=== PATIENT | male | born 1955 | race Caucasian/White ===

== ENCOUNTER 2018-03-18 18:55 | Inpatient (IN) | payer SELFPAY ==
[~2018-03-18] VITALS: Ht 180.3 cm; Wt 69.0 kg
[2018-03-18 19:56] LABS: Basophils # (auto) 0 uL; Basophils % (auto) 0.3 % (0.0-2.0); Eosinophils # (auto) 0 uL; Hematocrit 49.8 % (41.0-53.0); Hemoglobin 17.2 g/dL (13.5-17.5); Lymphocytes # (auto) 0.7 uL; Lymphocytes % (auto) 5.5 % (10.0-50.0); Mean Corpuscular Hemoglobin 33.8 pg (28.0-32.0); Mean Corpuscular Hgb Conc. 34.4 g/dL (32.0-36.0); Mean Corpuscular Volume 98.2 fL (80.0-100.0); Monocytes % (auto) 7.7 % (0.0-12.0); Neutrophils % (auto) 86.5 % (37.0-80.0); Platelet Count (auto) 237 10^3/uL (140-450); Red Blood Cells 5.08 10^6/uL (4.5-5.90); White Blood Cell 12.8 10^3/uL (4.4-10.8)
[2018-03-18 20:18] LABS: BUN/Creatinine Ratio 12.4; Calcium 8.9 mg/dL (8.5-10.1)
[2018-03-18 20:20] LABS: Bilirubin, Total 0.9 mg/dL (0.2-1.0); Total Protein 7.9 g/dL (6.4-8.2)
[2018-03-18 22:39] LABS: Urine Bacteria NONE SEEN /hpf (None Seen); Urine Blood 2+ /uL (Negative); Urine Mucus FEW (None Seen); Urine WBC 8 /hpf (0 - 3)
[2018-03-19 00:44] LABS: Prothrombin Time 10.9 sec (9.37-12.3)
[2018-03-19] MEDS ORDERED: PROMETHAZINE HCL 25 MG/ML 1ML IV ONE (00:45)
[2018-03-19] MEDS ORDERED: ACETAMINOPHEN 500 MG TAB PO PRN (02:00)
[2018-03-19] MEDS ORDERED: ONDANSETRON HCL 4 MG/2 ML VIAL IV PRN (02:00)
[2018-03-19 04:15] VITALS: BP 130/77
[2018-03-19] MEDS: HYDROcodone-ACET 5/325MG TAB PO PRN (07:51)
[2018-03-19 08:01] VITALS: BP 109/73
[2018-03-19 08:28] LABS: Basophils # (auto) 0 uL; Basophils % (auto) 0.5 % (0.0-2.0); Eosinophils # (auto) 0 uL; Eosinophils % (auto) 0.3 % (0.0-7.0); Hematocrit 44.6 % (41.0-53.0); Hemoglobin 15.2 g/dL (13.5-17.5); Lymphocytes % (auto) 13.2 % (10.0-50.0); Mean Corpuscular Hemoglobin 33.4 pg (28.0-32.0); Mean Corpuscular Hgb Conc. 34.1 g/dL (32.0-36.0); Mean Corpuscular Volume 98.1 fL (80.0-100.0); Monocytes # (auto) 0.8 uL; Monocytes % (auto) 10.5 % (0.0-12.0); Neutrophils # (auto) 5.6 uL; Neutrophils % (auto) 75.5 % (37.0-80.0); Platelet Count (auto) 221 10^3/uL (140-450); Red Blood Cells 4.55 10^6/uL (4.5-5.90); White Blood Cell 7.5 10^3/uL (4.4-10.8)
[2018-03-19 08:48] LABS: BUN/Creatinine Ratio 14.3; Calcium 8.5 mg/dL (8.5-10.1); Potassium 3.6 mmol/L (3.5-5.1)
[2018-03-19] MEDS: cefTRIAXone 1GM/10ml IVPUSH 10 ML IV SCH (08:51)
[2018-03-19] MEDS: NICOTINE 14 MG/24HR TOPICAL PATCH TD SCH (08:51)
[2018-03-19] MEDS ORDERED: ALPRAZolam 0.5 MG TAB PO ONE (12:45)
[2018-03-19 13:00] VITALS: BP 109/60
[2018-03-19] MEDS: MORPHINE SULFATE 4 MG/ML SYR/VIAL IV PRN (13:32)
[2018-03-19] MEDS: METOPROLOL TARTRATE 25 MG TAB PO SCH ×2 (13:32→21:38)
[2018-03-19 14:02] LABS: Alcohol, Urine < 3.0 mg/dL (0-5); Amphetamine Screen, Urine NEGATIVE (NEGATIVE); Barbiturate Scree,Urine NEGATIVE (NEGATIVE); Benzodiazephine Screen, Urine NEGATIVE (NEGATIVE); Cannabinoid Screen, Urine POSITIVE (NEGATIVE); Cocaine Screen, Urine NEGATIVE (NEGATIVE); Opiate Scree,Urine NEGATIVE (NEGATIVE); Phencyclidine Screen, Urine NEGATIVE (NEGATIVE)
[2018-03-19 17:34] VITALS: BP 125/79
[2018-03-19] MEDS: ALPRAZolam 0.5 MG TAB PO PRN (21:39)
[2018-03-19 21:51] VITALS: BP 108/68
[2018-03-20 05:52] VITALS: BP 102/69
[2018-03-20] MEDS: MORPHINE SULFATE 4 MG/ML SYR/VIAL IV PRN ×3 (08:31→15:58)
[2018-03-20] MEDS: HYDROcodone-ACET 5/325MG TAB PO PRN ×2 (08:56→15:27)
[2018-03-20 09:04] VITALS: BP 112/68
[2018-03-20] MEDS: cefTRIAXone 1GM/10ml IVPUSH 10 ML IV SCH (09:24)
[2018-03-20] MEDS: NICOTINE 14 MG/24HR TOPICAL PATCH TD SCH (09:25)
[2018-03-20] MEDS: METOPROLOL TARTRATE 25 MG TAB PO SCH ×2 (09:25→22:00)
[2018-03-20] MEDS: ALPRAZolam 0.5 MG TAB PO PRN ×2 (11:43→20:09)
[2018-03-20] MEDS: CARISOPRODOL 350 MG TAB PO PRN ×2 (12:03→19:15)
[2018-03-20 13:31] VITALS: BP 105/70
[2018-03-20 17:27] VITALS: BP 97/62
[2018-03-20 22:01] VITALS: BP 101/59
[2018-03-21 04:49] VITALS: BP 98/66
[2018-03-21] MEDS: CARISOPRODOL 350 MG TAB PO PRN ×2 (07:46→14:59)
[2018-03-21] MEDS: HYDROcodone-ACET 5/325MG TAB PO PRN ×3 (07:46→17:46)
[2018-03-21 08:58] VITALS: BP 99/69
[2018-03-21] MEDS ORDERED: cefTRIAXone 1GM/10ml IVPUSH 10 ML IV SCH (09:00)
[2018-03-21] MEDS: MORPHINE SULFATE 4 MG/ML SYR/VIAL IV PRN ×3 (09:04→16:00)
[2018-03-21] MEDS: ALPRAZolam 0.5 MG TAB PO PRN ×2 (09:20→17:46)
[2018-03-21] MEDS: NICOTINE 14 MG/24HR TOPICAL PATCH TD SCH (09:22)
[2018-03-21] MEDS: METOPROLOL TARTRATE 25 MG TAB PO SCH ×2 (10:00→22:29)
[2018-03-21 13:00] VITALS: BP 121/78
[2018-03-21 17:12] VITALS: BP 108/67
[2018-03-21 22:00] VITALS: BP 102/63
[2018-03-21] MEDS ORDERED: TEMAZEPAM 15 MG CAP PO PRN (22:00)
[2018-03-22 05:02] VITALS: BP 99/63
[2018-03-22] MEDS: HYDROcodone-ACET 5/325MG TAB PO PRN (06:55)
[2018-03-22] MEDS: ALPRAZolam 0.5 MG TAB PO PRN (06:55)
[2018-03-22 08:00] VITALS: BP 92/55
[2018-03-22 09:00] VITALS: BP 92/55
[2018-03-22] MEDS: NICOTINE 14 MG/24HR TOPICAL PATCH TD SCH (09:49)
[2018-03-22] MEDS: METOPROLOL TARTRATE 25 MG TAB PO SCH (09:50)
[2018-03-22] MEDS ORDERED: CAR350T PO (10:44)
[2018-03-22] MEDS ORDERED: NICO14DI9 TD (10:44)
[2018-03-22 13:00] VITALS: BP 124/76
[2018-03-22 15:25] VITALS: BP 99/55
[2018-03-22 17:04] VITALS: BP 142/89
== END 2018-03-22 18:11 | disposition home or self-care (01) | DRG 723 ==
LOC: ER 18:55 → TELE 18:56 → TELE-EAST 03-19 04:15 → EAST 03-22 04:52
PROVIDERS: ADMIT Nurse Practitioner Family; ATTEND Internal Medicine
DX: C61 Malignant neoplasm of prostate (principal); N13.30 Unspecified hydronephrosis; C79.51 Secondary malignant neoplasm of bone; F17.210 Nicotine dependence, cigarettes, uncomplicated; F41.9 Anxiety disorder, unspecified; I10 Essential (primary) hypertension; I70.8 Atherosclerosis of other arteries; R62.7 Adult failure to thrive; N32.0 Bladder-neck obstruction; N32.89 Other specified disorders of bladder; R31.9 Hematuria, unspecified; Z85.46 Personal history of malignant neoplasm of prostate; Z91.19 Patient's noncompliance with other medical treatment and regimen; Z80.3 Family history of malignant neoplasm of breast; Z92.21 Personal history of antineoplastic chemotherapy; Z79.899 Other long term (current) drug therapy
CPT/HCPCS: 36415; 51702; 71045; 74176; 76775; 80048; 80053; 80307; 81001; 84154; 85025; 85610; 85730; 87040; 87086; 93005; 96374

== ENCOUNTER 2018-07-21 16:29 | Inpatient (IN) | payer BC ==
[~2018-07-21] VITALS: Ht 170.2 cm; Wt 61.7 kg
[~2018-07-21 16:29] MED LIST: CAR350T PO; NICO14DI9 TD
[2018-07-21 17:17] LABS: Basophils # (auto) 0.1 uL; Basophils % (auto) 0.9 % (0.0-2.0); Eosinophils # (auto) 0 uL; Eosinophils % (auto) 0.1 % (0.0-7.0); Hematocrit 31.8 % (41.0-53.0); Hemoglobin 10.7 g/dL (13.5-17.5); Lymphocytes # (auto) 0.8 uL; Lymphocytes % (auto) 7.9 % (10.0-50.0); Mean Corpuscular Hemoglobin 29.7 pg (28.0-32.0); Mean Corpuscular Hgb Conc. 33.8 g/dL (32.0-36.0); Mean Corpuscular Volume 88.1 fL (80.0-100.0); Monocytes # (auto) 0.9 uL; Monocytes % (auto) 9.1 % (0.0-12.0); Neutrophils # (auto) 7.9 uL; Platelet Count (auto) 380 10^3/uL (140-450); Red Blood Cells 3.61 10^6/uL (4.5-5.90); Red Cell Distribution Width 18.4 % (11.8-14.3); White Blood Cell 9.7 10^3/uL (4.4-10.8)
[2018-07-21] MEDS ORDERED: PANTOPRAZOLE 40 MG/10 ML VIAL IV STA (17:24)
[2018-07-21] MEDS ORDERED: SODIUM CHLORIDE 0.9% 1,000 ML IVB ONE (17:24)
[2018-07-21] MEDS ORDERED: ONDANSETRON HCL 4 MG/2 ML VIAL IV ONE (17:30)
[2018-07-21] MEDS ORDERED: MORPHINE SULFATE 4 MG/ML SYR/VIAL IV ONE (17:30)
[2018-07-21 17:56] LABS: Albumin 2.1 g/dL (3.4-5.0); BUN/Creatinine Ratio 15.2; Bilirubin, Total 0.5 mg/dL (0.2-1.0); Calcium 7.9 mg/dL (8.5-10.1); Magnesium 2.6 mg/dL (1.6-2.6); Potassium 3.8 mmol/L (3.5-5.1); Total Protein 6.5 g/dL (6.4-8.2)
[2018-07-21 19:27] LABS: Urine Amorphous Crystal MOD /hpf (None Seen); Urine Bacteria MANY /hpf (None Seen); Urine Blood 1+ /uL (Negative); Urine Mucus FEW (None Seen); Urine Specific Gravity 1.017 (1.001-1.035); Urine WBC 315 /hpf (0 - 3); Urine WBC Clumps PRESENT /hpf (None Seen)
[2018-07-21] MEDS ORDERED: cefTRIAXone 1GM/10ml IVPUSH 10 ML IV ONE (20:10)
[2018-07-21] MEDS ORDERED: ACETAMINOPHEN 500 MG TAB PO PRN (22:00)
[2018-07-21] MEDS ORDERED: ONDANSETRON HCL 4 MG/2 ML VIAL IV PRN (22:00)
[2018-07-22] MEDS ORDERED: MORPHINE SULFATE 4 MG/ML SYR/VIAL IV ONE (02:45)
[2018-07-22] MEDS ORDERED: LORazepam 2MG/ML-1ML VIAL IV PRN (04:45)
[2018-07-22] MEDS ORDERED: LACTULOSE 20Gm/30ML SOLN PO PRN (04:45)
[2018-07-22] MEDS: HYDROcodone-ACET 5/325MG TAB PO PRN ×4 (06:59→23:54)
[2018-07-22 07:25] LABS: Basophils # (auto) 0 uL; Basophils % (auto) 0.5 % (0.0-2.0); Eosinophils # (auto) 0.1 uL; Eosinophils % (auto) 0.6 % (0.0-7.0); Hematocrit 29.8 % (41.0-53.0); Hemoglobin 10.1 g/dL (13.5-17.5); Lymphocytes # (auto) 0.6 uL; Lymphocytes % (auto) 6.8 % (10.0-50.0); Mean Corpuscular Hemoglobin 30.3 pg (28.0-32.0); Mean Corpuscular Hgb Conc. 34.1 g/dL (32.0-36.0); Mean Corpuscular Volume 88.9 fL (80.0-100.0); Monocytes # (auto) 0.9 uL; Monocytes % (auto) 10.5 % (0.0-12.0); Neutrophils # (auto) 7.1 uL; Neutrophils % (auto) 81.6 % (37.0-80.0); Platelet Count (auto) 375 10^3/uL (140-450); Red Blood Cells 3.35 10^6/uL (4.5-5.90); Red Cell Distribution Width 18.6 % (11.8-14.3); White Blood Cell 8.7 10^3/uL (4.4-10.8)
[2018-07-22 07:50] LABS: BUN/Creatinine Ratio 16.4; Calcium 8.1 mg/dL (8.5-10.1); Potassium 3.6 mmol/L (3.5-5.1)
[2018-07-22] MEDS: cefTRIAXone 1GM/10ml IVPUSH 10 ML IV SCH (09:12)
[2018-07-22] MEDS: FOLIC ACID 1 MG TAB PO SCH (10:20)
[2018-07-22] MEDS: THIAMINE 100mg/ml INJ (200mg/2ml VIAL) IV SCH (10:20)
[2018-07-22] MEDS: MULTIPLE VITAMIN TAB PO SCH (10:20)
[2018-07-23] MEDS ORDERED: MORPHINE SULF INJ 2 MG/ML SYRINGE 1ML ONE (02:51)
[2018-07-23] MEDS ORDERED: ENOXAPARIN SOD 60 MG/0.6 ML SYRINGE SC ONE (02:51)
[2018-07-23] MEDS: MORPHINE SULF INJ 2 MG/ML SYRINGE 1ML IV PRN ×2 (02:58→08:27)
[2018-07-23 06:50] VITALS: BP 116/68
[2018-07-23 08:00] VITALS: BP 134/71
[2018-07-23] MEDS: cefTRIAXone 1GM/10ml IVPUSH 10 ML IV SCH (08:33)
[2018-07-23] MEDS: THIAMINE 100mg/ml INJ (200mg/2ml VIAL) IV SCH (08:34)
[2018-07-23] MEDS ORDERED: IOHEXOL 350 MG/ML 100ML IJ ONE (09:46)
[2018-07-23 09:48] LABS: Cholesterol 132 mg/dL (< 200); HDL Cholesterol 30 mg/dL (40-59); LDL Cholesterol 92 mg/dL (< 100); Triglycerides 133 mg/dL (< 150)
[2018-07-23] MEDS ORDERED: ENOXAPARIN SOD 100 MG/1 ML SYRINGE SC SCH (10:00)
[2018-07-23] MEDS: ENOXAPARIN SOD 60 MG/0.6 ML SYRINGE SC SCH ×2 (10:00→21:32)
[2018-07-23 12:00] VITALS: BP 147/66
[2018-07-23] MEDS: HYDROcodone-ACET 5/325MG TAB PO PRN ×2 (12:40→21:31)
[2018-07-23] MEDS: FOLIC ACID 1 MG TAB PO SCH (12:41)
[2018-07-23] MEDS: ASPirin-EC 81 mg tab PO SCH (12:41)
[2018-07-23] MEDS: MULTIPLE VITAMIN TAB PO SCH (12:41)
[2018-07-23] MEDS: NICOTINE 14 MG/24HR TOPICAL PATCH TD SCH (14:38)
[2018-07-23] MEDS ORDERED: SODIUM CHLORIDE 0.9% 1,000 ML IV ONE (15:15)
[2018-07-23 16:52] VITALS: BP 126/76
[2018-07-23 19:53] VITALS: BP 123/82
[2018-07-23 22:33] VITALS: BP 121/71
[2018-07-24 05:07] VITALS: BP 101/63
[2018-07-24 05:57] LABS: Basophils # (auto) 0 uL; Basophils % (auto) 0.4 % (0.0-2.0); Eosinophils # (auto) 0.1 uL; Eosinophils % (auto) 1.1 % (0.0-7.0); Hematocrit 28.4 % (41.0-53.0); Hemoglobin 9.8 g/dL (13.5-17.5); Lymphocytes # (auto) 0.6 uL; Lymphocytes % (auto) 6.3 % (10.0-50.0); Mean Corpuscular Hemoglobin 30.1 pg (28.0-32.0); Mean Corpuscular Hgb Conc. 34.4 g/dL (32.0-36.0); Mean Corpuscular Volume 87.6 fL (80.0-100.0); Monocytes # (auto) 0.7 uL; Monocytes % (auto) 7.3 % (0.0-12.0); Neutrophils # (auto) 8.3 uL; Neutrophils % (auto) 84.9 % (37.0-80.0); Platelet Count (auto) 354 10^3/uL (140-450); Red Blood Cells 3.24 10^6/uL (4.5-5.90); Red Cell Distribution Width 18.6 % (11.8-14.3); White Blood Cell 9.8 10^3/uL (4.4-10.8)
[2018-07-24 06:31] LABS: Albumin 1.9 g/dL (3.4-5.0); BUN/Creatinine Ratio 12.7; Bilirubin, Total 0.3 mg/dL (0.2-1.0); Calcium 7.7 mg/dL (8.5-10.1); Potassium 3.3 mmol/L (3.5-5.1); Total Protein 5.8 g/dL (6.4-8.2)
[2018-07-24] MEDS ORDERED: IODIXANOL 320MG/ML 100ML BTL IV ONE ×2 (07:46→10:32)
[2018-07-24] MEDS ORDERED: LIDOCAINE 2%HCL (LOCAL ANESTH.) INJ 20ML MDV ONE ×2 (07:47→10:27)
[2018-07-24 08:00] VITALS: BP 113/67
[2018-07-24] MEDS: cefTRIAXone 1GM/10ml IVPUSH 10 ML IV SCH (09:27)
[2018-07-24] MEDS: THIAMINE 100mg/ml INJ (200mg/2ml VIAL) IV SCH (09:29)
[2018-07-24] MEDS: ENOXAPARIN SOD 60 MG/0.6 ML SYRINGE SC SCH (10:00)
[2018-07-24 10:18] LABS: INR 1.05 (0.9-1.15); Partial Thromboplastin Time 33.4 sec (23.78-33.04); Prothrombin Time 11.2 sec (9.27-12.13)
[2018-07-24] MEDS ORDERED: MIDAZOLAM HCL 1MG/1ML-2 ML VIAL ONE (10:37)
[2018-07-24] MEDS ORDERED: fentaNYL CITRATE 100 MCG/2 ML VL ONE (10:37)
[2018-07-24] MEDS: FOLIC ACID 1 MG TAB PO SCH (13:29)
[2018-07-24] MEDS: MULTIPLE VITAMIN TAB PO SCH (13:29)
[2018-07-24] MEDS: ASPirin-EC 81 mg tab PO SCH (13:29)
[2018-07-24] MEDS: NICOTINE 14 MG/24HR TOPICAL PATCH TD SCH (13:29)
[2018-07-24] MEDS ORDERED: SODIUM CHLOR 0.9% PF (SALINE LOCK) 10ML VIAL/SYR IV SCH (14:00)
[2018-07-24] MEDS: HYDROcodone-ACET 5/325MG TAB PO PRN (14:42)
[2018-07-24 16:00] VITALS: BP 130/67
[2018-07-24 17:04] VITALS: BP 130/67
== END 2018-07-24 19:05 | disposition home health service (06) | DRG 280 ==
LOC: EDUNIT# 16:29 → ER 16:29 → EDBD 16:29 → TELE 16:30 → DOU IN ICU 07-23 06:07 → TELE-CENTR 07-23 21:00
PROVIDERS: ADMIT Nurse Practitioner Family; ATTEND Internal Medicine
PROC: 0T933ZZ Drainage of Right Kidney Pelvis, Percutaneous Approach (ICD-10-PCS; principal; 2018-07-24)
DX: I21.4 Non-ST elevation (NSTEMI) myocardial infarction (principal); E43 Unspecified severe protein-calorie malnutrition; J90 Pleural effusion, not elsewhere classified; N13.6 Pyonephrosis; C78.7 Secondary malignant neoplasm of liver and intrahepatic bile duct; C78.00 Secondary malignant neoplasm of unspecified lung; G89.3 Neoplasm related pain (acute) (chronic); C61 Malignant neoplasm of prostate; K56.41 Fecal impaction; F17.200 Nicotine dependence, unspecified, uncomplicated; F12.90 Cannabis use, unspecified, uncomplicated; I10 Essential (primary) hypertension; Z80.3 Family history of malignant neoplasm of breast; Z80.42 Family history of malignant neoplasm of prostate; R63.4 Abnormal weight loss; Z68.21 Body mass index [BMI] 21.0-21.9, adult
CPT/HCPCS: 36415; 71275; 74176; 76942; 80048; 80053; 80061; 81001; 82962; 83690; 83735; 84154; 84484; 85025; 85379; 85610; 85730; 87081; 87086; 87088; 87186; 93005; 93306; 94761; 96374; 96375; 96376; 99152; A6257; C1729; C9113; J0696; J2250; J2405; Q9967

== ENCOUNTER 2018-12-12 11:41 | Inpatient (IN) | payer BC | END 2018-12-14 19:10 | LOC: TELE-EAST 12-13 03:02 → ER 11:41 → TELE 19:23 | DX: C61 Malignant neoplasm of prostate (principal); N13.6 Pyonephrosis; C78.00 Secondary malignant neoplasm of unspecified lung; C78.7 Secondary malignant neoplasm of liver and intrahepatic bile duct; C79.51 Secondary malignant neoplasm of bone; N39.0 Urinary tract infection, site not specified; I82.411 Acute embolism and thrombosis of right femoral vein ==